=== PATIENT | male | born 1975 | race Caucasian/White ===

== ENCOUNTER 2016-10-11 17:50 | Inpatient (IN) | payer MEDICAID ==
[~2016-10-11] VITALS: Ht 167.6 cm; Wt 72.6 kg
[2016-10-11] MEDS ORDERED: SODIUM CHLORIDE 0.9% 1,000 ML IV ONE (22:20)
[2016-10-11] MEDS ORDERED: PANTOPRAZOLE SODIUM 40 MG/VIAL IV STA (22:20)
[2016-10-11 23:40] LABS: HEMOGLOBIN. 11.8 g/dL (14.0-18.0); MEAN CORPUSCULAR HEMOGLOBIN 27.3 pg (28.0-32.0); MEAN CORPUSCULAR VOLUME 83.1 fL (80.0-94.0); MEAN PLATELET VOLUME 9.7 fl (7.4-10.4); PLATELET 125 x1000/uL (130-400); RED BLOOD CELL COUNT 4.34 mill/uL (4.7-6.1); RED CELL DISTRIBUTION WIDTH 19.4 % (11.6-14.6)
[2016-10-11 23:49] LABS: INR 1.1; PROTHROMBIN TIME 11.4 sec (9.4-11.6)
[2016-10-11 23:56] LABS: CARBON DIOXIDE 28 mEq/L (21-32); CHLORIDE 103 mEq/L (98-107)
[2016-10-12 00:38] LABS: ATYPICAL LYMPHOCYTES 1
[2016-10-12 00:39] LABS: PLATELET ESTIMATE SLIGHTLY DECREASED
[2016-10-12 04:00] VITALS: BP 124/88
[2016-10-12] MEDS ORDERED: ONDANSETRON HCL 4MG/2ML VIAL IV PRN (06:15)
[2016-10-12] MEDS ORDERED: PANTOPRAZOLE 80 MG in SODIUM CHLORIDE 0.9% 100 ML IV SCH ×2 (06:15→08:00)
[2016-10-12] MEDS: HYDROCODONE/ACETAMINOPHEN 5/325MG TABLET PO PRN ×2 (09:42→14:33)
[2016-10-12] MEDS ORDERED: SODIUM CHLORIDE 0.9% 10ML VIAL ONE (09:50)
[2016-10-12] MEDS ORDERED: IOHEXOL-300 100 ML BOTTLE ONE (09:50)
[2016-10-12 10:11] LABS: BASOPHILS % 0.8 % (0.0-2.0); EOSINOPHILS % 0.5 % (0.0-5.0); HEMOGLOBIN. 12.6 g/dL (14.0-18.0); LYMPHOCYTES % 13.8 % (20.0-50.0); MEAN CORPUSCULAR VOLUME 83.4 fL (80.0-94.0); MEAN PLATELET VOLUME 10.3 fl (7.4-10.4); MONOCYTES % 11.4 % (2.0-8.0); NEUTROPHILS % 73.5 % (40.0-76.0); PLATELET 135 x1000/uL (130-400); RED BLOOD CELL COUNT 4.68 mill/uL (4.7-6.1); RED CELL DISTRIBUTION WIDTH 19.4 % (11.6-14.6)
[2016-10-12 10:28] LABS: CARBON DIOXIDE 26 mEq/L (21-32); CHLORIDE 100 mEq/L (98-107); ETHANOL BLOOD 10 mg/dL
[2016-10-12 10:33] LABS: AMYLASE 77 IU/L (25-115)
[2016-10-12 11:27] VITALS: BP 121/84
[2016-10-12 12:00] VITALS: BP 118/71
[2016-10-12] MEDS ORDERED: PNEUMOCOCCAL 23-VAL P-SAC VAC 0.5 ML IM ONE (12:15)
[2016-10-12] MEDS ORDERED: LORAZEPAM 2MG/ML CPJ IV PRN (12:15)
[2016-10-12 14:13] LABS: HEPATITIS B SURFACE ANTIGEN NEGATIVE
[2016-10-12] MEDS: MULTIVITAMINS,THER W-MINERALS TABLET PO SCH (14:15)
[2016-10-12] MEDS: CHLORDIAZEPOXIDE 25MG CAPSULE PO SCH ×2 (14:15→21:21)
[2016-10-12] MEDS: THIAMINE HCL 100MG TABLET PO SCH (14:15)
[2016-10-12] MEDS: FOLIC ACID 1MG TABLET PO SCH (14:16)
[2016-10-12] MEDS: SODIUM CHLORIDE 0.9% 1,000 ML IV SCH (14:17)
[2016-10-12 14:41] LABS: HEPATITIS B CORE AB IGM NEGATIVE
[2016-10-12 14:43] LABS: HEPATITIS A AB IGM NEGATIVE (NEGATIVE)
[2016-10-12 16:00] VITALS: BP 110/79
[2016-10-12 17:06] LABS: INR 1.1; PROTHROMBIN TIME 11.5 sec (9.4-11.6)
[2016-10-12 17:09] LABS: HEMATOCRIT 36.5 % (42.0-52.0)
[2016-10-12 17:24] LABS: CREATINE KINASE 55 IU/L (39-308); CREATINE KINASE MB FRACTION < 0.5 ng/mL (0.5-3.6); TROPONIN I < 0.02 ng/mL (0.00-0.04)
[2016-10-12 20:00] VITALS: BP 135/80
[2016-10-12] MEDS: PANTOPRAZOLE SODIUM 40 MG/VIAL IV SCH (21:21)
[2016-10-12 22:57] LABS: HEMATOCRIT 36.7 % (42.0-52.0)
[2016-10-12 23:13] LABS: CREATINE KINASE 51 IU/L (39-308); CREATINE KINASE MB FRACTION < 0.5 ng/mL (0.5-3.6); TROPONIN I < 0.02 ng/mL (0.00-0.04)
[2016-10-13] VITALS: BP 115/67
[2016-10-13 04:00] VITALS: BP 111/66
[2016-10-13] MEDS: CHLORDIAZEPOXIDE 25MG CAPSULE PO SCH ×3 (06:10→21:09)
[2016-10-13] MEDS: SODIUM CHLORIDE 0.9% 1,000 ML IV SCH (06:10)
[2016-10-13 06:54] LABS: INR 1.2; PARTIAL THROMBOPLASTIN TIME 29.3 sec (23.4-31.0)
[2016-10-13 07:43] VITALS: BP 119/79
[2016-10-13] MEDS ORDERED: SIMETHICONE 40 MG/0.6 ML 30ML ONE ×2 (07:43→09:42)
[2016-10-13] MEDS ORDERED: SODIUM CHLORIDE 0.9% 10ML VIAL ONE (07:43)
[2016-10-13] MEDS: PANTOPRAZOLE SODIUM 40 MG/VIAL IV SCH (08:55)
[2016-10-13] MEDS: FOLIC ACID 1MG TABLET PO SCH (08:59)
[2016-10-13] MEDS: MULTIVITAMINS,THER W-MINERALS TABLET PO SCH (08:59)
[2016-10-13] MEDS: THIAMINE HCL 100MG TABLET PO SCH (08:59)
[2016-10-13 11:41] VITALS: BP 126/84
[2016-10-13] MEDS ORDERED: FENTANYL CITRATE/PF 50MCG/ML 2ML VIAL ONE (12:23)
[2016-10-13] MEDS ORDERED: MIDAZOLAM HCL 5 MG/5 ML VIAL ONE (12:23)
[2016-10-13] MEDS ORDERED: FENTANYL CITRATE/PF 50MCG/ML 2ML VIAL IV PRN (12:30)
[2016-10-13] MEDS ORDERED: MIDAZOLAM HCL 5 MG/5 ML VIAL IV PRN (12:32)
[2016-10-13 15:41] VITALS: BP 118/84
[2016-10-13] MEDS: HYDROCODONE/ACETAMINOPHEN 5/325MG TABLET PO PRN ×2 (16:52→21:09)
[2016-10-13] MEDS ORDERED: OMEPRAZOLE 20MG CAPSULE EXTENDED RELEASE PO SCH (18:00)
[2016-10-13 20:00] VITALS: BP 110/73
[2016-10-14] VITALS: BP 124/67
[2016-10-14] MEDS: SODIUM CHLORIDE 0.9% 1,000 ML IV SCH (03:03)
[2016-10-14 04:00] VITALS: BP 91/54
[2016-10-14] MEDS: CHLORDIAZEPOXIDE 25MG CAPSULE PO SCH ×3 (06:28→22:21)
[2016-10-14] MEDS: OMEPRAZOLE 20MG CAPSULE EXTENDED RELEASE PO SCH ×2 (06:29→08:04)
[2016-10-14 07:41] VITALS: BP 116/77
[2016-10-14] MEDS: THIAMINE HCL 100MG TABLET PO SCH (08:04)
[2016-10-14] MEDS: FOLIC ACID 1MG TABLET PO SCH (08:04)
[2016-10-14] MEDS: MULTIVITAMINS,THER W-MINERALS TABLET PO SCH (08:05)
[2016-10-14 11:42] VITALS: BP 110/76
[2016-10-14] MEDS ORDERED: LORAZEPAM 2MG/ML CPJ IV PRN (12:15)
[2016-10-14 16:04] VITALS: BP 120/89
[2016-10-14 20:00] VITALS: BP 105/68
[2016-10-15] VITALS: BP 104/65
[2016-10-15 04:00] VITALS: BP 101/66
[2016-10-15] MEDS: OMEPRAZOLE 20MG CAPSULE EXTENDED RELEASE PO SCH (06:45)
[2016-10-15] MEDS: CHLORDIAZEPOXIDE 25MG CAPSULE PO SCH (06:45)
[2016-10-15 07:40] VITALS: BP 116/71
[2016-10-15] MEDS: FOLIC ACID 1MG TABLET PO SCH (08:50)
[2016-10-15] MEDS: MULTIVITAMINS,THER W-MINERALS TABLET PO SCH (08:50)
[2016-10-15] MEDS: THIAMINE HCL 100MG TABLET PO SCH (08:50)
[2016-10-15 11:54] VITALS: BP 103/77
[2016-10-15] MEDS ORDERED: OMEP20CA10 PO (13:31)
[2016-10-15] MEDS ORDERED: FOLI-43 PO (13:31)
[2016-10-15] MEDS ORDERED: Multivitamins,Ther W-Minerals PO (13:31)
[2016-10-15] MEDS ORDERED: THIA100T72 PO (13:31)
[2016-10-15 15:14] VITALS: BP 103/77
== END 2016-10-15 16:36 | disposition home or self-care (01) | DRG 253 ==
LOC: ER 18:00 → EDBD 10-12 03:12 → 8WST 10-12 03:12 → EDBEDREQ 10-12 03:50 → ENRESERV 10-12 04:23
PROVIDERS: ADMIT Internal Medicine; ATTEND Internal Medicine
PROC: 0DJ08ZZ Inspection of Upper Intestinal Tract, Via Natural or Artificial Opening Endoscopic (ICD-10-PCS; principal; 2016-10-13 12:00)
DX: K92.0 Hematemesis (principal); K85.20 Alcohol induced acute pancreatitis without necrosis or infection; K76.0 Fatty (change of) liver, not elsewhere classified; K70.10 Alcoholic hepatitis without ascites; K22.10 Ulcer of esophagus without bleeding; F10.20 Alcohol dependence, uncomplicated; K29.70 Gastritis, unspecified, without bleeding; K31.7 Polyp of stomach and duodenum; K44.9 Diaphragmatic hernia without obstruction or gangrene; H26.9 Unspecified cataract; Z79.899 Other long term (current) drug therapy
CPT/HCPCS: 36415; 74177; 76700; 80053; 80076; 82150; 82248; 82550; 82553; 83690; 83735; 84484; 85014; 85018; 85025; 85610; 85730; 86705; 86709; 86803; 86850; 86900; 87340; 90732; 93005; 96361; 96374; 97112; 97116; 97162; 99285; A4216; C9113; G0482; J2060; J2250; J2405; J3010; J7030; J7040; J7050; Q9967

== ENCOUNTER 2017-12-24 18:35 | Emergency (ER) | payer MEDICAID ==
[~2017-12-24] VITALS: Ht 167.6 cm; Wt 70.0 kg
[~2017-12-24 18:35] MED LIST: FOLI-43 PO; Multivitamins,Ther W-Minerals PO; OMEP20CA10 PO; THIA100T72 PO
[2017-12-24] MEDS ORDERED: FAMOTIDINE 20MG/2ML VIAL IV STA (22:00)
[2017-12-24] MEDS ORDERED: ONDANSETRON HCL 4MG/2ML INJ IV STA (22:00)
[2017-12-24] MEDS ORDERED: MORPHINE SULFATE 4 MG/ML CPJ (NOT FOR IM USE) IV STA (22:00)
[2017-12-24] MEDS ORDERED: SODIUM CHLORIDE 0.9% 1,000 ML IV ONE (22:00)
[2017-12-24 23:19] LABS: BASOPHILS % 1.8 % (0.0-2.0); EOSINOPHILS % 4.8 % (0.0-5.0); HEMATOCRIT. 37.1 % (42.0-52.0); LYMPHOCYTES % 43.4 % (20.0-50.0); MEAN CORPUSCULAR HEMOGLOBIN 26.5 pg (28.0-32.0); MEAN CORPUSCULAR VOLUME 81.9 fL (80.0-94.0); MEAN PLATELET VOLUME 8.8 fl (7.4-10.4); MONOCYTES % 12.7 % (2.0-8.0); NEUTROPHILS % 37.3 % (40.0-76.0); PLATELET 245 x1000/uL (130-400); RED BLOOD CELL COUNT 4.53 mill/uL (4.7-6.1)
[2017-12-24 23:25] LABS: PROTHROMBIN TIME 10.4 sec (9.1-11.1)
[2017-12-24 23:28] LABS: CHLORIDE 103 mEq/L (98-107); ETHANOL BLOOD 271 mg/dL
[2017-12-24 23:41] LABS: CLARITY URINE CLEAR (CLEAR); COLOR URINE YELLOW (YELLOW); KETONES URINE NEGATIVE (NEGATIVE); LEUKOCYTE ESTERASE URINE TRACE (NEGATIVE); NITRITE URINE NEGATIVE (NEGATIVE); OCCULT BLOOD URINE 2+ (NEGATIVE); PH URINE 5.5 (4.5-8.0); PROTEIN URINE NEGATIVE (NEGATIVE); SPECIFIC GRAVITY URINE 1.003 (1.005-1.030); UROBILINOGEN URINE 0.2 E.U./dL (0.2-1.0)
[2017-12-25] MEDS ORDERED: FOLIC ACID 1 MG, THIAMINE HCL 100 MG, MVI, ADULT NO.1 10 ML in DEXTROSE 5% WATER 1,000 ML IV ONE ×4
[2017-12-25 00:01] LABS: METHADONE URINE SCREEN NEGATIVE (NEGATIVE); OPIATES URINE SCREEN NEGATIVE (NEGATIVE); PHENCYCLIDINE URINE SCREEN NEGATIVE (NEGATIVE)
[2017-12-25 00:03] LABS: *AMPHETAMINES SCREEN URINE NEGATIVE (NEGATIVE); *BARBITURATES SCREEN URINE NEGATIVE (NEGATIVE); *BENZODIAZEPINES SCREEN URINE NEGATIVE (NEGATIVE); *COCAINE SCREEN URINE NEGATIVE (NEGATIVE); CANNABINOID URINE SCREEN PRESUMTIVE POSITIVE (NEGATIVE)
[2017-12-25 02:35] VITALS: BP 110/67
== END 2017-12-25 02:35 | disposition home or self-care (01) ==
LOC: ER 18:35
DX: K29.20 Alcoholic gastritis without bleeding (principal); F10.10 Alcohol abuse, uncomplicated; R74.8 Abnormal levels of other serum enzymes; R79.89 Other specified abnormal findings of blood chemistry; Z87.11 Personal history of peptic ulcer disease; K85.90 Acute pancreatitis without necrosis or infection, unspecified; Z79.899 Other long term (current) drug therapy
CPT/HCPCS: 36415; 71045; 74176; 80053; 80305; 81003; 83690; 84484; 85025; 85610; 93005; 96361; 96365; 96375; 99285; G0482; J2270; J2405; J3411; J3490; J7030; J7070

== ENCOUNTER 2018-01-21 22:58 | Emergency (ER) | payer MEDICAID ==
[~2018-01-21] VITALS: Ht 157.5 cm; Wt 68.1 kg
[2018-01-22] MEDS ORDERED: FAMOTIDINE 20MG/2ML VIAL IV STA (01:56)
[2018-01-22] MEDS ORDERED: MORPHINE SULFATE 4 MG/ML CPJ (NOT FOR IM USE) IV STA (01:56)
[2018-01-22] MEDS ORDERED: MAGNESIUM/ALUMINUM HYDROXIDE/SIMETHICONE 30ML UDC PO STA (01:56)
[2018-01-22 02:30] LABS: BASOPHILS % 2.1 % (0.0-2.0); EOSINOPHILS % 7.5 % (0.0-5.0); HEMATOCRIT. 35.4 % (42.0-52.0); HEMOGLOBIN. 11.4 g/dL (14.0-18.0); LYMPHOCYTES % 41.6 % (20.0-50.0); MEAN CORPUSCULAR HEMOGLOBIN 26.2 pg (28.0-32.0); MEAN CORPUSCULAR VOLUME 81.5 fL (80.0-94.0); MEAN PLATELET VOLUME 8.1 fl (7.4-10.4); MONOCYTES % 13.8 % (2.0-8.0); PLATELET 296 x1000/uL (130-400); RED BLOOD CELL COUNT 4.35 mill/uL (4.7-6.1); RED CELL DISTRIBUTION WIDTH 18.7 % (11.6-14.6)
[2018-01-22 02:36] LABS: CHLORIDE 103 mEq/L (98-107)
[2018-01-22 02:40] LABS: ETHANOL BLOOD 217 mg/dL; PROTHROMBIN TIME 10.3 sec (9.1-11.1)
[2018-01-22 10:03] LABS: CLARITY URINE CLEAR (CLEAR); COLOR URINE YELLOW (YELLOW); KETONES URINE NEGATIVE (NEGATIVE); LEUKOCYTE ESTERASE URINE NEGATIVE (NEGATIVE); NITRITE URINE NEGATIVE (NEGATIVE); OCCULT BLOOD URINE 2+ (NEGATIVE); PROTEIN URINE NEGATIVE (NEGATIVE); UROBILINOGEN URINE 0.2 E.U./dL (0.2-1.0)
[2018-01-22 10:24] LABS: *AMPHETAMINES SCREEN URINE NEGATIVE (NEGATIVE); *BARBITURATES SCREEN URINE NEGATIVE (NEGATIVE); *BENZODIAZEPINES SCREEN URINE PRESUMTIVE POSITIVE (NEGATIVE); *COCAINE SCREEN URINE PRESUMTIVE POSITIVE (NEGATIVE); CANNABINOID URINE SCREEN NEGATIVE (NEGATIVE); PHENCYCLIDINE URINE SCREEN NEGATIVE (NEGATIVE)
[2018-01-22 10:25] LABS: METHADONE URINE SCREEN NEGATIVE (NEGATIVE); OPIATES URINE SCREEN PRESUMTIVE POSITIVE (NEGATIVE)
[2018-01-22 15:10] VITALS: BP 119/54
== END 2018-01-22 16:22 | disposition home or self-care (01) ==
LOC: ER 22:58
DX: R10.11 Right upper quadrant pain (principal); R11.0 Nausea; F10.20 Alcohol dependence, uncomplicated; Y90.7 Blood alcohol level of 200-239 mg/100 ml
CPT/HCPCS: 36415; 74176; 76705; 80053; 80305; 81003; 83690; 85025; 85610; 96374; 96375; 99284; G0482; J2270; J3490

== ENCOUNTER 2018-12-09 20:37 | Inpatient (IN) | payer MEDICAID, OTHER ==
[~2018-12-09] VITALS: Ht 170.2 cm; Wt 56.7 kg
[~2018-12-09 20:37] MED LIST changes: -OMEP20CA10 PO; +OMEP20CA5 PO
[2018-12-09] MEDS ORDERED: ONDANSETRON HCL 4MG/2ML INJ IV STA (21:58)
[2018-12-09] MEDS ORDERED: MORPHINE SULFATE 4 MG/ML CPJ (NOT FOR IM USE) IV STA (21:58)
[2018-12-09] MEDS ORDERED: SODIUM CHLORIDE 0.9% 1,000 ML IV ONE (21:58)
[2018-12-09] MEDS ORDERED: PIPERACILLIN/TAZ 3.375G PREMIX 50 ML IV ONE (22:00)
[2018-12-09] MEDS ORDERED: VANCOMYCIN 1 G PREMIX 200 ML IV ONE (22:00)
[2018-12-09 22:52] LABS: BASOPHILS % 1.1 % (0.0-2.0); EOSINOPHILS % 6.1 % (0.0-5.0); HEMATOCRIT. 33.8 % (42.0-52.0); LYMPHOCYTES % 31.4 % (20.0-50.0); MEAN CORPUSCULAR HEMOGLOBIN 26.9 pg (28.0-32.0); MEAN CORPUSCULAR VOLUME 82.3 fL (80.0-94.0); MEAN PLATELET VOLUME 7.9 fl (7.4-10.4); MONOCYTES % 8.7 % (2.0-8.0); NEUTROPHILS % 52.7 % (40.0-76.0); PLATELET 530 x1000/uL (130-400); RED CELL DISTRIBUTION WIDTH 20.8 % (11.6-14.6)
[2018-12-09 22:57] LABS: CHLORIDE 105 mEq/L (98-107); PROTHROMBIN TIME 10.1 sec (9.6-11.0)
[2018-12-09 23:01] LABS: ETHANOL BLOOD 222 mg/dL
[2018-12-09 23:06] LABS: CREATINE KINASE 53 IU/L (39-308)
[2018-12-09 23:08] LABS: CREATINE KINASE MB FRACTION < 1.0 ng/mL (0.5-3.6)
[2018-12-10] MEDS: MORPHINE SULFATE 2 MG/ML CPJ (NOT FOR IM USE) IV PRN ×4 (06:26→23:56)
[2018-12-10] MEDS ORDERED: ONDANSETRON HCL 4MG/2ML INJ IV PRN (09:45)
[2018-12-10] MEDS ORDERED: ACETAMINOPHEN 325MG TABLET PO PRN (09:45)
[2018-12-10] MEDS ORDERED: LORAZEPAM 2MG/ML CPJ IV PRN (09:45)
[2018-12-10] MEDS: FOLIC ACID 1 MG, THIAMINE HCL 100 MG, MVI, ADULT NO.1 10 ML in DEXTROSE 5% WATER 1,000 ML IV SCH ×4 (11:30)
[2018-12-10] MEDS ORDERED: PIPERACILLIN/TAZOBACTAM 3.375 G in DEXT 5% WATER 100 ML IV SCH (12:00)
[2018-12-10 19:12] LABS: CLARITY URINE CLEAR (CLEAR); COLOR URINE YELLOW (YELLOW); KETONES URINE NEGATIVE (NEGATIVE); LEUKOCYTE ESTERASE URINE NEGATIVE (NEGATIVE); NITRITE URINE NEGATIVE (NEGATIVE); OCCULT BLOOD URINE NEGATIVE (NEGATIVE); PH URINE 6.5 (4.5-8.0); PROTEIN URINE NEGATIVE (NEGATIVE); SPECIFIC GRAVITY URINE 1.007 (1.005-1.030); UROBILINOGEN URINE 0.2 E.U./dL (0.2-1.0)
[2018-12-10 19:25] LABS: *AMPHETAMINES SCREEN URINE NEGATIVE (NEGATIVE); *BARBITURATES SCREEN URINE NEGATIVE (NEGATIVE); *BENZODIAZEPINES SCREEN URINE NEGATIVE (NEGATIVE); *COCAINE SCREEN URINE NEGATIVE (NEGATIVE); METHADONE URINE SCREEN NEGATIVE (NEGATIVE)
[2018-12-10 19:26] LABS: CANNABINOID URINE SCREEN NEGATIVE (NEGATIVE); OPIATES URINE SCREEN PRESUMTIVE POSITIVE (NEGATIVE); PHENCYCLIDINE URINE SCREEN NEGATIVE (NEGATIVE)
[2018-12-10 21:00] VITALS: BP 111/72
[2018-12-10] MEDS: HYDROCODONE/ACETAMINOPHEN 5/325MG TABLET PO PRN (21:29)
[2018-12-10 22:08] VITALS: BP 111/72
[2018-12-10] MEDS: VANCOMYCIN 1250MG in DEXTROSE 5% WATER 250ML IV SCH (23:00)
[2018-12-11] VITALS: BP 116/61
[2018-12-11] MEDS: PIPERACILLIN/TAZOBACTAM 3.375 G in DEXT 5% WATER 100 ML IV SCH ×3 (02:42→15:27)
[2018-12-11 04:00] VITALS: BP 118/62
[2018-12-11 06:33] LABS: BASOPHILS % 1.2 % (0.0-2.0); EOSINOPHILS % 9.3 % (0.0-5.0); LYMPHOCYTES % 21.4 % (20.0-50.0); MEAN CORPUSCULAR HEMOGLOBIN 26.7 pg (28.0-32.0); MEAN CORPUSCULAR VOLUME 82.5 fL (80.0-94.0); MEAN PLATELET VOLUME 8.5 fl (7.4-10.4); MONOCYTES % 12.1 % (2.0-8.0); PLATELET 429 x1000/uL (130-400); RED BLOOD CELL COUNT 3.76 mill/uL (4.7-6.1); RED CELL DISTRIBUTION WIDTH 20.3 % (11.6-14.6)
[2018-12-11 06:41] LABS: CHLORIDE 102 mEq/L (98-107)
[2018-12-11 08:00] VITALS: BP 111/68
[2018-12-11] MEDS: ENOXAPARIN 40MG/0.4ML SYR SUBCUT SCH (08:40)
[2018-12-11] MEDS: VANCOMYCIN 1250MG in DEXTROSE 5% WATER 250ML IV SCH (11:21)
[2018-12-11] MEDS: HYDROCODONE/ACETAMINOPHEN 5/325MG TABLET PO PRN ×2 (11:21→21:00)
[2018-12-11 12:00] VITALS: BP 116/74
[2018-12-11] MEDS ORDERED: POTASSIUM CHLORIDE 20MEQ TABLET SR PO SCH (13:00)
[2018-12-11] MEDS: FOLIC ACID 1 MG, THIAMINE HCL 100 MG, MVI, ADULT NO.1 10 ML in DEXTROSE 5% WATER 1,000 ML IV SCH ×4 (13:34)
[2018-12-11] MEDS: MORPHINE SULFATE 2 MG/ML CPJ (NOT FOR IM USE) IV PRN (15:30)
[2018-12-11 16:00] VITALS: BP 109/56
[2018-12-11 20:00] VITALS: BP_SYST 107; BP_SYST 97; BP_DIAS 54
[2018-12-11] MEDS: VANCOMYCIN 1 G PREMIX 200 ML IV SCH (20:58)
[2018-12-12] VITALS: BP 102/54
[2018-12-12] MEDS: PIPERACILLIN/TAZOBACTAM 3.375 G in DEXT 5% WATER 100 ML IV SCH ×4 (00:18→15:41)
[2018-12-12] MEDS: MORPHINE SULFATE 2 MG/ML CPJ (NOT FOR IM USE) IV PRN (00:36)
[2018-12-12 04:00] VITALS: BP 98/52
[2018-12-12 05:11] LABS: HIV SCREEN 4G Non Reactive (Non Reactive)
[2018-12-12] MEDS: VANCOMYCIN 1 G PREMIX 200 ML IV SCH ×2 (05:24→12:49)
[2018-12-12 08:00] VITALS: BP 96/52
[2018-12-12] MEDS: ENOXAPARIN 40MG/0.4ML SYR SUBCUT SCH (09:00)
[2018-12-12] MEDS ORDERED: FOLIC ACID 1 MG, THIAMINE HCL 100 MG, MVI, ADULT NO.1 10 ML in DEXTROSE 5% WATER 1,000 ML IV SCH ×4 (10:00)
[2018-12-12 12:00] VITALS: BP 98/64
[2018-12-12] MEDS: HYDROCODONE/ACETAMINOPHEN 5/325MG TABLET PO PRN (12:50)
[2018-12-12] MEDS ORDERED: GABAPENTIN 300MG CAPSULE PO SCH (14:00)
[2018-12-12 16:00] VITALS: BP 102/62
[2018-12-12 17:42] VITALS: BP 98/60
== END 2018-12-12 19:29 | DRG 383 ==
LOC: ER 20:37 → EDBEDREQDT 12-10 00:46 → EDBEDREQ 12-10 00:46 → EDBEDREQTM 12-10 00:46 → 6EST 12-10 02:13 → EDBEDREQ 12-10 02:24 → EDBEDREQTM 12-10 02:24 → ENRESERV 12-10 18:22
PROVIDERS: ADMIT Internal Medicine; ATTEND Internal Medicine
DX: L03.116 Cellulitis of left lower limb (principal); E87.2 Acidosis; Z89.611 Acquired absence of right leg above knee; G62.1 Alcoholic polyneuropathy; D64.9 Anemia, unspecified; F10.129 Alcohol abuse with intoxication, unspecified; S82.839A Other fracture of upper and lower end of unspecified fibula, initial encounter for closed fracture; F12.90 Cannabis use, unspecified, uncomplicated; F17.210 Nicotine dependence, cigarettes, uncomplicated; Y90.7 Blood alcohol level of 200-239 mg/100 ml; Z59.0 Homelessness; Z89.511 Acquired absence of right leg below knee; Z63.8 Other specified problems related to primary support group; Z99.3 Dependence on wheelchair; Z91.19 Patient's noncompliance with other medical treatment and regimen
CPT/HCPCS: 36415; 71045; 73590; 73620; 80048; 80202; 80305; 80320; 81003; 82550; 82553; 83605; 83880; 84145; 84484; 87389; 93005; 93970; 99285; J1650; J2270; J2405; J2543; J3370; J3411; J3490; J7030; J7040; J7060; J7070; G0480